=== PATIENT | female | born 1960 | race Caucasian/White ===

== ENCOUNTER 2017-08-28 09:49 | Emergency (ER) | payer OTHER ==
[~2017-08-28] VITALS: Ht 172.7 cm; Wt 47.6 kg
[2017-08-28] MEDS ORDERED: BENTYL 10 MG CA10 M1 PO (10:01)
[2017-08-28] MEDS ORDERED: XANAX 0.25 MG0.25 MG PO (10:01)
[2017-08-28] MEDS ORDERED: CHANTIX0.5 MG PO (10:01)
[2017-08-28] MEDS ORDERED: MELOXICAM7.5 MG PO (10:01)
[2017-08-28] MEDS ORDERED: OXYCONTIN10 M1 PO (10:01)
[2017-08-28] MEDS ORDERED: MEDROLDOSEPACK PO (12:42)
[2017-08-28] MEDS ORDERED: FLEXERIL PO (12:42)
[2017-08-28] MEDS ORDERED: IBUPROFEN 800800 M1 PO (12:42)
[2017-08-28 12:54] VITALS: BP 153/91
== END 2017-08-28 12:55 | disposition home or self-care (01) ==
LOC: M.ERS 09:49
DX: R20.2 Paresthesia of skin (principal)